=== PATIENT | female | born 1955 | race African-American/Black ===

== ENCOUNTER 2016-07-15 21:08 | Emergency (ER) | payer MEDICAID, OTHER ==
[~2016-07-15] VITALS: Ht 167.6 cm; Wt 59.0 kg
[~2016-07-15 21:08] MED LIST: ATOR10TA PO; NO HOME MEDS
[2016-07-16 00:10] LABS: BASOPHILS % 0.4 % (0.0-2.0); EOSINOPHILS % 0.1 % (0.0-5.0); HEMATOCRIT. 42.2 % (36.0-48.0); HEMOGLOBIN. 14.1 g/dL (12.0-16.0); LYMPHOCYTES % 13.9 % (20.0-50.0); MEAN CORPUSCULAR HEMOGLOBIN 30.3 pg (28.0-32.0); MEAN CORPUSCULAR HGB CONC 33.5 g/dL (31.0-37.0); MEAN CORPUSCULAR VOLUME 90.6 fL (81.0-99.0); MEAN PLATELET VOLUME 7.2 fl (7.4-10.4); MONOCYTES % 12.6 % (2.0-8.0); PLATELET 214 x1000/uL (130-400); RED BLOOD CELL COUNT 4.66 mill/uL (4.2-5.4); RED CELL DISTRIBUTION WIDTH 13.5 % (11.6-14.6); WHITE BLOOD COUNT 15.4 x1000/uL (4.5-11.0)
[2016-07-16 00:15] LABS: CHLORIDE 107 mEq/L (98-107); INDEX HEMOLYSI 1 (1-3); INDEX ICTERIC 1 (1-4); INDEX LIPEMIC 1 (1-3)
[2016-07-16 00:24] LABS: ALANINE AMINOTRANSFERASE 24 IU/L (13-61); ALBUMIN 3.1 g/dL (3.4-5.0); ANION GAP 14; CALCIUM 8.7 mg/dL (8.5-10.1); CARBON DIOXIDE 22 mEq/L (21-32); UREA NITROGEN BLOOD 15 mg/dL (7-21); eGFR > 60 mL/min (>60)
[2016-07-16 02:24] LABS: CLARITY URINE CLEAR (CLEAR); COLOR URINE YELLOW (YELLOW); GLUCOSE URINE NEGATIVE (NEGATIVE); KETONES URINE 1+ (NEGATIVE); LEUKOCYTE ESTERASE URINE NEGATIVE (NEGATIVE); NITRITE URINE NEGATIVE (NEGATIVE); OCCULT BLOOD URINE NEGATIVE (NEGATIVE); PROTEIN URINE TRACE (NEGATIVE); SPECIFIC GRAVITY URINE 1.024 (1.005-1.030)
[2016-07-16 02:40] LABS: SQUAMOUS EPITHELIAL CELL URINE FEW /lpf (RARE/1+)
[2016-07-16 02:42] LABS: BACTERIA URINE 4+; WBC URINE 0-2 /hpf (0-2)
[2016-07-16] MEDS ORDERED: SODIUM CHLORIDE 0.9% 250 ML IV ONE (06:04)
[2016-07-16] MEDS ORDERED: CEFTRIAXONE 1 G PREMIX 50 ML IV ONE (06:15)
[2016-07-16 10:45] VITALS: BP 134/84
== END 2016-07-16 11:35 | disposition short-term general hospital (02) ==
LOC: ER 21:09
DX: I70.293 Other atherosclerosis of native arteries of extremities, bilateral legs (principal); G89.29 Other chronic pain; N39.0 Urinary tract infection, site not specified; I10 Essential (primary) hypertension; K59.09 Other constipation; E78.00 Pure hypercholesterolemia, unspecified; Z74.01 Bed confinement status; M21.962 Unspecified acquired deformity of left lower leg; M21.961 Unspecified acquired deformity of right lower leg
CPT/HCPCS: 36415; 71010; 80053; 81001; 85025; 93005; 93970; 96365; 99285; J0696; J7050; Z7610; J7030

== ENCOUNTER 2016-10-30 17:51 | Emergency (ER) | payer MEDICARE, MEDICAID ==
[~2016-10-30] VITALS: Ht 157.5 cm; Wt 54.0 kg
[2016-10-30] MEDS ORDERED: KETOROLAC 60MG/2ML VIAL IM ONE (18:45)
[2016-10-30 22:14] VITALS: BP 125/80
== END 2016-10-30 22:47 | disposition home or self-care (01) ==
LOC: ER 18:18
DX: M72.2 Plantar fascial fibromatosis (principal); I10 Essential (primary) hypertension; E78.00 Pure hypercholesterolemia, unspecified
CPT/HCPCS: 96372; 99283; J1885

== ENCOUNTER 2016-12-24 08:47 | Emergency (ER) | payer MEDICARE, MEDICAID ==
[~2016-12-24] VITALS: Ht 152.4 cm; Wt 50.0 kg
[2016-12-24] MEDS ORDERED: AMLO5TAB4 PO (08:55)
[2016-12-24] MEDS ORDERED: ESCI10TA PO (08:55)
[2016-12-24] MEDS ORDERED: CLOP75TA16 PO (08:55)
[2016-12-24] MEDS ORDERED: DOCU-138 PO (08:55)
[2016-12-24] MEDS ORDERED: LISI-604 PO (08:55)
[2016-12-24] MEDS ORDERED: ASPI-1159 PO (08:55)
[2016-12-24] MEDS ORDERED: ATOR20TA65 PO (08:55)
[2016-12-24] MEDS ORDERED: TETANUS, DIPHTHERIA, PERTUSSIS VAC/PF 0.5ML (>7YR OLD) IM ONE (11:15)
[2016-12-24 14:53] VITALS: BP 143/82
== END 2016-12-24 15:04 | disposition home or self-care (01) ==
LOC: ER 08:51
DX: S09.90XA Unspecified injury of head, initial encounter (principal); W07.XXXA Fall from chair, initial encounter; I10 Essential (primary) hypertension; F32.9 Major depressive disorder, single episode, unspecified; E78.00 Pure hypercholesterolemia, unspecified; Y93.89 Activity, other specified; Y92.89 Other specified places as the place of occurrence of the external cause; Z79.82 Long term (current) use of aspirin
CPT/HCPCS: 70450; 90471; 90715; 99284

== ENCOUNTER 2017-01-25 04:34 | Emergency (ER) | payer MEDICARE, MEDICAID ==
[~2017-01-25] VITALS: Ht 154.9 cm; Wt 50.0 kg
[~2017-01-25 04:34] MED LIST changes: +AMLO5TAB4 PO; +ASPI-1159 PO; +ATOR20TA65 PO; +CLOP75TA16 PO; +DOCU-138 PO; +ESCI10TA PO; +LISI-604 PO
[2017-01-25 07:26] VITALS: BP 127/64
== END 2017-01-25 07:52 | disposition home or self-care (01) ==
LOC: ER 04:39
DX: M25.561 Pain in right knee (principal); E78.00 Pure hypercholesterolemia, unspecified; I10 Essential (primary) hypertension; F17.200 Nicotine dependence, unspecified, uncomplicated; Z79.82 Long term (current) use of aspirin
CPT/HCPCS: 73562; 93971; 99284

== ENCOUNTER 2017-02-24 08:30 | Emergency (ER) | payer MEDICARE, MEDICAID ==
[~2017-02-24] VITALS: Ht 160 cm; Wt 60.0 kg
[2017-02-24] MEDS ORDERED: SODIUM CHLORIDE 0.9% 1,000 ML IV ONE (08:50)
[2017-02-24 09:11] LABS: BASOPHILS % 0.5 % (0.0-2.0); EOSINOPHILS % 2.4 % (0.0-5.0); HEMOGLOBIN. 14.4 g/dL (12.0-16.0); LYMPHOCYTES % 38.1 % (20.0-50.0); MEAN CORPUSCULAR HEMOGLOBIN 30.7 pg (28.0-32.0); MEAN PLATELET VOLUME 7.2 fl (7.4-10.4); MONOCYTES % 9.1 % (2.0-8.0); NEUTROPHILS % 49.9 % (40.0-76.0); PLATELET 264 x1000/uL (130-400); RED BLOOD CELL COUNT 4.67 mill/uL (4.2-5.4); RED CELL DISTRIBUTION WIDTH 14.5 % (11.6-14.6)
[2017-02-24 09:21] LABS: INR 1.1
[2017-02-24 09:31] LABS: CARBON DIOXIDE 25 mEq/L (21-32); CHLORIDE 110 mEq/L (98-107); TROPONIN I < 0.02 ng/mL (0.00-0.04)
[2017-02-24 12:00] LABS: CLARITY URINE CLEAR (CLEAR); COLOR URINE YELLOW (YELLOW); SPECIFIC GRAVITY URINE 1.018 (1.005-1.030)
[2017-02-24 12:01] LABS: GLUCOSE URINE NEGATIVE (NEGATIVE); KETONES URINE NEGATIVE (NEGATIVE); LEUKOCYTE ESTERASE URINE NEGATIVE (NEGATIVE); NITRITE URINE NEGATIVE (NEGATIVE); OCCULT BLOOD URINE NEGATIVE (NEGATIVE); PH URINE 5.5 (4.5-8.0); PROTEIN URINE NEGATIVE (NEGATIVE)
[2017-02-24 14:21] VITALS: BP 143/80
== END 2017-02-24 16:01 | disposition home or self-care (01) ==
LOC: ER 08:40
DX: R53.1 Weakness (principal); I10 Essential (primary) hypertension; E78.00 Pure hypercholesterolemia, unspecified; I69.354 Hemiplegia and hemiparesis following cerebral infarction affecting left non-dominant side; Z79.82 Long term (current) use of aspirin
CPT/HCPCS: 36415; 70450; 70486; 71010; 80053; 81003; 82962; 83880; 84484; 85025; 85610; 93005; 96360; 96361; 99285; J7030

== ENCOUNTER 2017-03-23 08:49 | Emergency (ER) | payer MEDICARE, MEDICAID ==
[~2017-03-23] VITALS: Ht 152.4 cm; Wt 68.0 kg
[2017-03-23 10:38] LABS: BASOPHILS % 0.3 % (0.0-2.0); EOSINOPHILS % 1.3 % (0.0-5.0); HEMATOCRIT. 42.6 % (36.0-48.0); LYMPHOCYTES % 9.4 % (20.0-50.0); MEAN CORPUSCULAR HEMOGLOBIN 30.6 pg (28.0-32.0); MEAN CORPUSCULAR VOLUME 93.4 fL (81.0-99.0); MEAN PLATELET VOLUME 7.4 fl (7.4-10.4); MONOCYTES % 7.2 % (2.0-8.0); NEUTROPHILS % 81.8 % (40.0-76.0); PLATELET 250 x1000/uL (130-400); RED BLOOD CELL COUNT 4.56 mill/uL (4.2-5.4); RED CELL DISTRIBUTION WIDTH 14.1 % (11.6-14.6)
[2017-03-23 10:44] LABS: CHLORIDE 113 mEq/L (98-107)
[2017-03-23 10:50] LABS: CARBON DIOXIDE 22 mEq/L (21-32)
[2017-03-23] MEDS ORDERED: ONDANSETRON HCL 4MG/2ML VIAL IV ONE (11:45)
[2017-03-23] MEDS ORDERED: SODIUM CHLORIDE 0.9% 1,000 ML IV ONE (11:45)
[2017-03-23 17:06] VITALS: BP 148/88
== END 2017-03-23 17:12 ==
LOC: ER 08:51
DX: E86.0 Dehydration (principal); K52.9 Noninfective gastroenteritis and colitis, unspecified; F03.90 Unspecified dementia, unspecified severity, without behavioral disturbance, psychotic disturbance, mood disturbance, and anxiety; I10 Essential (primary) hypertension; Z79.82 Long term (current) use of aspirin
CPT/HCPCS: 36415; 80048; 85025; 96361; 96374; 99285; J2405; J7030

== ENCOUNTER 2017-05-15 19:59 | Emergency (ER) | payer MEDICARE, MEDICAID ==
[~2017-05-15] VITALS: Ht 162.6 cm; Wt 60.0 kg
[2017-05-16 05:15] VITALS: BP 145/74
== END 2017-05-16 05:29 | disposition home or self-care (01) ==
LOC: ER 20:39
DX: L84 Corns and callosities (principal); I10 Essential (primary) hypertension; Z79.82 Long term (current) use of aspirin
CPT/HCPCS: 99283

== ENCOUNTER 2018-01-24 12:33 | Inpatient (IN) | payer MEDICARE, MEDICAID ==
[~2018-01-24] VITALS: Ht 170.2 cm; Wt 63.5 kg
[~2018-01-24 12:33] MED LIST changes: -NO HOME MEDS
[2018-01-24] MEDS ORDERED: SODIUM CHLORIDE 0.9% 1,000 ML IV ONE (13:28)
[2018-01-24 13:47] LABS: BASOPHILS % 0.9 % (0.0-2.0); EOSINOPHILS % 1.8 % (0.0-5.0); HEMATOCRIT. 45.9 % (36.0-48.0); HEMOGLOBIN. 15.8 g/dL (12.0-16.0); LYMPHOCYTES % 40.3 % (20.0-50.0); MEAN CORPUSCULAR HEMOGLOBIN 31.2 pg (28.0-32.0); MEAN CORPUSCULAR VOLUME 90.7 fL (81.0-99.0); MEAN PLATELET VOLUME 7.8 fl (7.4-10.4); MONOCYTES % 10.5 % (2.0-8.0); NEUTROPHILS % 46.5 % (40.0-76.0); PLATELET 268 x1000/uL (130-400); RED BLOOD CELL COUNT 5.06 mill/uL (4.2-5.4); RED CELL DISTRIBUTION WIDTH 13.8 % (11.6-14.6)
[2018-01-24 13:51] LABS: CHLORIDE 107 mEq/L (98-107)
[2018-01-24 13:56] LABS: PARTIAL THROMBOPLASTIN TIME 28.5 sec (23.4-31.0); PROTHROMBIN TIME 10.4 sec (9.1-11.1)
[2018-01-24] MEDS ORDERED: CEFTRIAXONE 1 G PREMIX 50 ML IV ONE (15:45)
[2018-01-24] MEDS ORDERED: SODIUM CHLORIDE 0.9% 1000ML BAG (SEPSIS BOLUS) IV ONE (15:45)
[2018-01-24 16:15] LABS: CLARITY URINE CLOUDY (CLEAR); COLOR URINE YELLOW (YELLOW); KETONES URINE NEGATIVE (NEGATIVE); LEUKOCYTE ESTERASE URINE 3+ (NEGATIVE); NITRITE URINE POSITIVE (NEGATIVE); OCCULT BLOOD URINE TRACE (NEGATIVE); PH URINE 6.5 (4.5-8.0); PROTEIN URINE NEGATIVE (NEGATIVE); SPECIFIC GRAVITY URINE 1.012 (1.005-1.030); UROBILINOGEN URINE 0.2 E.U./dL (0.2-1.0)
[2018-01-24] MEDS ORDERED: HYDRALAZINE 20MG/ML VIAL IV PRN (18:00)
[2018-01-24] MEDS ORDERED: HYDRALAZINE 20MG/ML VIAL IV NR (18:30)
[2018-01-24 20:00] VITALS: BP 114/90
[2018-01-24 21:40] VITALS: BP 114/90
[2018-01-24] MEDS ORDERED: ACETAMINOPHEN 325MG TABLET PO PRN (22:15)
[2018-01-24] MEDS ORDERED: ONDANSETRON HCL 4MG/2ML INJ IV PRN (22:15)
[2018-01-24] MEDS ORDERED: GUAIFENESIN 200MG/10ML SUGAR FREE UDC PO PRN (22:15)
[2018-01-24] MEDS ORDERED: MAGNESIUM/ALUMINUM HYDROXIDE/SIMETHICONE 30ML UDC PO PRN (22:15)
[2018-01-24] MEDS ORDERED: HYDRALAZINE 10 MG in SODIUM CHLORIDE 0.9% 49.5 ML IV PRN (23:00)
[2018-01-24] MEDS ORDERED: MVI, ADULT NO.1 10 ML, FOLIC ACID 1 MG, THIAMINE HCL 100 MG in SODIUM CHLORIDE 0.9% 1,0... IV SCH ×4 (23:59)
[2018-01-25] VITALS: BP 166/87
[2018-01-25 04:00] VITALS: BP 130/89
[2018-01-25 08:00] VITALS: BP 107/60
[2018-01-25] MEDS: CLOPIDOGREL 75MG TABLET PO SCH (09:12)
[2018-01-25] MEDS: ASPIRIN 81MG EC TABLET PO SCH (09:12)
[2018-01-25] MEDS: ENOXAPARIN 40MG/0.4ML SYR SUBCUT SCH (09:12)
[2018-01-25] MEDS: AMLODIPINE 5MG TABLET PO SCH (09:13)
[2018-01-25] MEDS: LISINOPRIL 10MG TABLET PO SCH ×2 (09:13→20:42)
[2018-01-25 12:00] VITALS: BP 108/74
[2018-01-25 16:00] VITALS: BP 125/89
[2018-01-25] MEDS: LEVOFLOXACIN 500MG PREMIX 100 ML IV SCH (18:54)
[2018-01-25 20:00] VITALS: BP 101/58
[2018-01-25] MEDS: ATORVASTATIN CALCIUM 20MG TABLET PO SCH (20:42)
[2018-01-26] VITALS: BP 118/79
[2018-01-26 04:00] VITALS: BP 116/79
[2018-01-26 08:00] VITALS: BP 118/74
[2018-01-26] MEDS: LISINOPRIL 10MG TABLET PO SCH ×2 (08:52→23:11)
[2018-01-26] MEDS: ASPIRIN 81MG EC TABLET PO SCH (08:54)
[2018-01-26] MEDS: CLOPIDOGREL 75MG TABLET PO SCH (08:54)
[2018-01-26] MEDS: ENOXAPARIN 40MG/0.4ML SYR SUBCUT SCH (08:55)
[2018-01-26] MEDS: AMLODIPINE 5MG TABLET PO SCH (08:55)
[2018-01-26 12:00] VITALS: BP 104/69
[2018-01-26 16:00] VITALS: BP 119/73
[2018-01-26] MEDS: LEVOFLOXACIN 500MG PREMIX 100 ML IV SCH (17:00)
[2018-01-26 20:00] VITALS: BP 133/83
[2018-01-26] MEDS: ATORVASTATIN CALCIUM 20MG TABLET PO SCH (23:10)
[2018-01-27] VITALS: BP 106/77
[2018-01-27 04:00] VITALS: BP 109/79
[2018-01-27 08:00] VITALS: BP 113/73
[2018-01-27] MEDS: LISINOPRIL 10MG TABLET PO SCH (09:08)
[2018-01-27] MEDS: AMLODIPINE 5MG TABLET PO SCH (09:09)
[2018-01-27] MEDS: ASPIRIN 81MG EC TABLET PO SCH (09:09)
[2018-01-27] MEDS: CLOPIDOGREL 75MG TABLET PO SCH (09:09)
[2018-01-27] MEDS: ENOXAPARIN 40MG/0.4ML SYR SUBCUT SCH (09:10)
[2018-01-27 11:51] VITALS: BP 120/62
[2018-01-27 12:00] VITALS: BP 120/62
== END 2018-01-27 15:39 | DRG 690 ==
LOC: ER 12:33 → EDBEDREQ 14:42 → ENRESERV 18:17 → 6EST 20:13
PROVIDERS: ADMIT Internal Medicine; ATTEND Internal Medicine
DX: N39.0 Urinary tract infection, site not specified (principal); R62.7 Adult failure to thrive; E78.00 Pure hypercholesterolemia, unspecified; B96.20 Unspecified Escherichia coli [E. coli] as the cause of diseases classified elsewhere; E78.5 Hyperlipidemia, unspecified; I10 Essential (primary) hypertension; Z82.49 Family history of ischemic heart disease and other diseases of the circulatory system; Z91.19 Patient's noncompliance with other medical treatment and regimen; Z86.73 Personal history of transient ischemic attack (TIA), and cerebral infarction without residual deficits; Z79.82 Long term (current) use of aspirin; Z79.899 Other long term (current) drug therapy
CPT/HCPCS: 36415; 71045; 83605; 83880; 84145; 84484; 87077; 87186; 93005; 96361; 96374; 96375; 99285; C1893; J0360; J0696; J1650; J1956; J3411; J3490; J7030; J7050; A4315

== ENCOUNTER 2018-03-31 22:45 | Emergency (ER) | payer MEDICARE, MEDICAID ==
[~2018-03-31] VITALS: Ht 170.2 cm; Wt 70.0 kg
[2018-03-31 23:52] LABS: HEMATOCRIT 42.6 % (36.0-48.0); HEMOGLOBIN 14.3 g/dL (12.0-16.0); MEAN CORPUSCULAR HEMOGLOBIN 30.6 pg (28.0-32.0); PLATELET 239 x1000/uL (130-400); RED BLOOD CELL COUNT 4.68 mill/uL (4.2-5.4); RED CELL DISTRIBUTION WIDTH 13.4 % (11.6-14.6)
[2018-03-31 23:56] LABS: CHLORIDE 104 mEq/L (98-107)
[2018-04-01 00:47] LABS: CLARITY URINE CLEAR (CLEAR); COLOR URINE YELLOW (YELLOW); KETONES URINE TRACE (NEGATIVE); LEUKOCYTE ESTERASE URINE NEGATIVE (NEGATIVE); NITRITE URINE NEGATIVE (NEGATIVE); OCCULT BLOOD URINE NEGATIVE (NEGATIVE); PH URINE 6.5 (4.5-8.0); PROTEIN URINE 1+ (NEGATIVE); SPECIFIC GRAVITY URINE 1.025 (1.005-1.030)
[2018-04-01 04:31] VITALS: BP 112/80
== END 2018-04-01 04:33 | disposition home or self-care (01) ==
LOC: ER 22:45
DX: I95.9 Hypotension, unspecified (principal); I10 Essential (primary) hypertension; E78.00 Pure hypercholesterolemia, unspecified; Z86.73 Personal history of transient ischemic attack (TIA), and cerebral infarction without residual deficits
CPT/HCPCS: 36415; 71045; 85027; 93005; 99284

== ENCOUNTER 2018-10-13 18:13 | Inpatient (IN) | payer MEDICARE, MEDICAID ==
[~2018-10-13] VITALS: Ht 167.6 cm; Wt 61.8 kg
[~2018-10-13 18:13] MED LIST changes: -ASPI-1159 PO; +ASPI-1393 PO; -CLOP75TA16 PO; +CLOP75TA4 PO
[2018-10-13] MEDS ORDERED: SODIUM CHLORIDE 0.9% 1000ML BAG (SEPSIS BOLUS) IV ONE (18:45)
[2018-10-13 19:02] LABS: BASOPHILS % 0.9 % (0.0-2.0); HEMATOCRIT. 45.2 % (36.0-48.0); HEMOGLOBIN. 15.4 g/dL (12.0-16.0); LYMPHOCYTES % 36.5 % (20.0-50.0); MEAN CORPUSCULAR HEMOGLOBIN 30.8 pg (28.0-32.0); MEAN CORPUSCULAR VOLUME 90.5 fL (81.0-99.0); MEAN PLATELET VOLUME 6.9 fl (7.4-10.4); MONOCYTES % 11.2 % (2.0-8.0); NEUTROPHILS % 48.4 % (40.0-76.0); PLATELET 315 x1000/uL (130-400); RED CELL DISTRIBUTION WIDTH 13.4 % (11.6-14.6)
[2018-10-13 19:06] LABS: CHLORIDE 109 mEq/L (98-107); INR 1.1; PROTHROMBIN TIME 10.9 sec (9.6-11.0)
[2018-10-13 19:22] LABS: CLARITY URINE TURBID (CLEAR); COLOR URINE YELLOW (YELLOW); KETONES URINE TRACE (NEGATIVE); LEUKOCYTE ESTERASE URINE 3+ (NEGATIVE); NITRITE URINE NEGATIVE (NEGATIVE); OCCULT BLOOD URINE 3+ (NEGATIVE); PROTEIN URINE 1+ (NEGATIVE); SPECIFIC GRAVITY URINE 1.017 (1.005-1.030)
[2018-10-13] MEDS ORDERED: LEVOFLOXACIN 750MG PREMIX 150 ML IV ONE (21:30)
[2018-10-13] MEDS ORDERED: ACETAMINOPHEN 325MG TABLET PO PRN (23:15)
[2018-10-13] MEDS ORDERED: HYDROMORPHONE HCL/PF 2MG/ML CPJ IV PRN (23:15)
[2018-10-13] MEDS ORDERED: MAGNESIUM/ALUMINUM HYDROXIDE/SIMETHICONE 30ML UDC PO PRN (23:15)
[2018-10-13] MEDS ORDERED: CLONIDINE 0.1MG TABLET PO PRN (23:15)
[2018-10-13] MEDS ORDERED: GUAIFENESIN 200MG/10ML SUGAR FREE UDC PO PRN (23:15)
[2018-10-13] MEDS ORDERED: DOCUSATE SODIUM 100MG CAPSULE PO PRN (23:15)
[2018-10-13] MEDS ORDERED: LEVOFLOXACIN 500MG PREMIX 100 ML IV SCH (23:15)
[2018-10-13] MEDS ORDERED: ONDANSETRON HCL 4MG/2ML INJ IV PRN (23:15)
[2018-10-14 02:50] VITALS: BP 114/78
[2018-10-14] MEDS: HYDROCODONE/ACETAMINOPHEN 5/325MG TABLET PO PRN ×2 (03:44→11:58)
[2018-10-14 04:00] VITALS: BP 123/78
[2018-10-14 08:00] VITALS: BP 103/58
[2018-10-14] MEDS ORDERED: ENOXAPARIN 30MG/0.3ML SYR SUBCUT SCH (09:00)
[2018-10-14] MEDS ORDERED: AMLODIPINE 10MG TABLET PO SCH (09:00)
[2018-10-14] MEDS ORDERED: ENOXAPARIN 40MG/0.4ML SYR SUBCUT SCH (09:00)
[2018-10-14 10:05] LABS: BASOPHILS % 0.6 % (0.0-2.0); EOSINOPHILS % 3.5 % (0.0-5.0); HEMOGLOBIN. 13.8 g/dL (12.0-16.0); MEAN CORPUSCULAR HEMOGLOBIN 31.1 pg (28.0-32.0); MEAN CORPUSCULAR VOLUME 92.4 fL (81.0-99.0); MEAN PLATELET VOLUME 7.3 fl (7.4-10.4); MONOCYTES % 10.7 % (2.0-8.0); NEUTROPHILS % 52.2 % (40.0-76.0); PLATELET 233 x1000/uL (130-400); RED BLOOD CELL COUNT 4.44 mill/uL (4.2-5.4); RED CELL DISTRIBUTION WIDTH 13.4 % (11.6-14.6)
[2018-10-14 10:14] LABS: CHLORIDE 113 mEq/L (98-107)
[2018-10-14] MEDS: SODIUM CHLORIDE 0.9% 1,000 ML IV SCH (11:42)
[2018-10-14 12:00] VITALS: BP 106/61
[2018-10-14] MEDS ORDERED: PNEUMOCOCCAL 23-VAL P-SAC VAC 0.5 ML IM ONE (12:00)
[2018-10-14 16:07] VITALS: BP 107/66
[2018-10-14 20:21] VITALS: BP 128/79
[2018-10-14] MEDS: LEVOFLOXACIN 250MG PREMIX 50 ML IV SCH (22:26)
[2018-10-15 00:41] VITALS: BP 125/72
[2018-10-15] MEDS: SODIUM CHLORIDE 0.9% 1,000 ML IV SCH ×2 (01:12→22:09)
[2018-10-15 04:00] VITALS: BP 147/82
[2018-10-15 06:21] LABS: CHLORIDE 111 mEq/L (98-107)
[2018-10-15 08:00] VITALS: BP 118/65
[2018-10-15] MEDS: ENOXAPARIN 40MG/0.4ML SYR SUBCUT SCH (08:30)
[2018-10-15 12:00] VITALS: BP 124/89
[2018-10-15 16:00] VITALS: BP 141/94
[2018-10-15 20:00] VITALS: BP 123/89
[2018-10-15] MEDS: LEVOFLOXACIN 250MG PREMIX 50 ML IV SCH (22:30)
[2018-10-16] VITALS: BP 118/80
[2018-10-16] MEDS: SODIUM CHLORIDE 0.9% 1,000 ML IV SCH ×2 (02:30→16:32)
[2018-10-16 04:00] VITALS: BP 145/83
[2018-10-16 08:15] VITALS: BP 129/55
[2018-10-16] MEDS: ENOXAPARIN 40MG/0.4ML SYR SUBCUT SCH (09:06)
[2018-10-16 12:44] VITALS: BP 111/72
[2018-10-16 16:23] VITALS: BP 119/81
[2018-10-16 19:47] VITALS: BP 135/80
[2018-10-16] MEDS: LEVOFLOXACIN 250MG PREMIX 50 ML IV SCH (22:28)
[2018-10-17] VITALS: BP 128/70
[2018-10-17 04:00] VITALS: BP 135/85
[2018-10-17] MEDS: SODIUM CHLORIDE 0.9% 1,000 ML IV SCH (05:35)
[2018-10-17 08:00] VITALS: BP 119/78
[2018-10-17] MEDS: ENOXAPARIN 40MG/0.4ML SYR SUBCUT SCH (08:38)
[2018-10-17 12:38] VITALS: BP 115/75
[2018-10-17 13:37] VITALS: BP 115/75
[2018-10-17 16:00] VITALS: BP 146/89
[2018-10-17] MEDS ORDERED: LEVOFLOXACIN 250MG TABLET PO SCH (22:00)
== END 2018-10-17 18:33 | DRG 871 ==
LOC: ER 18:28 → EDBEDREQSVC 22:05 → EDBEDREQTM 22:05 → EDBEDREQ 22:05 → ENRESERV 10-14 01:47 → 8WST 10-14 03:05
PROVIDERS: ADMIT Hospitalist; ATTEND Hospitalist
DX: A41.9 Sepsis, unspecified organism (principal); N17.0 Acute kidney failure with tubular necrosis; E44.1 Mild protein-calorie malnutrition; N39.0 Urinary tract infection, site not specified; B96.20 Unspecified Escherichia coli [E. coli] as the cause of diseases classified elsewhere; E78.00 Pure hypercholesterolemia, unspecified; M79.671 Pain in right foot; F03.90 Unspecified dementia, unspecified severity, without behavioral disturbance, psychotic disturbance, mood disturbance, and anxiety; I10 Essential (primary) hypertension; Z86.73 Personal history of transient ischemic attack (TIA), and cerebral infarction without residual deficits; Z68.22 Body mass index [BMI] 22.0-22.9, adult; Z79.899 Other long term (current) drug therapy
CPT/HCPCS: 36415; 71045; 73620; 73700; 83605; 84145; 84484; 87077; 87186; 90732; 96365; 99285; C1893; J1170; J1650; J1956; J7030

== ENCOUNTER 2019-04-22 12:54 | Inpatient (IN) | payer MEDICARE, MEDICAID ==
[~2019-04-22] VITALS: Ht 170.2 cm; Wt 59.4 kg
[~2019-04-22 12:54] MED LIST changes: -ASPI-1393 PO; +ASPI-1497 PO
[2019-04-22 14:24] LABS: BASOPHILS % 0.5 % (0.0-2.0); EOSINOPHILS % 0.4 % (0.0-5.0); HEMATOCRIT. 44.8 % (36.0-48.0); HEMOGLOBIN. 15.4 g/dL (12.0-16.0); MEAN CORPUSCULAR HEMOGLOBIN 30.7 pg (28.0-32.0); MEAN CORPUSCULAR VOLUME 89.5 fL (81.0-99.0); MEAN PLATELET VOLUME 6.6 fl (7.4-10.4); MONOCYTES % 6.5 % (2.0-8.0); NEUTROPHILS % 73.6 % (40.0-76.0); PLATELET 306 x1000/uL (130-400); RED BLOOD CELL COUNT 5.01 mill/uL (4.2-5.4); RED CELL DISTRIBUTION WIDTH 13.6 % (11.6-14.6)
[2019-04-22 14:30] LABS: CHLORIDE 111 mEq/L (98-107)
[2019-04-22 14:34] LABS: ETHANOL BLOOD < 10 mg/dL
[2019-04-22 16:59] LABS: CLARITY URINE TURBID (CLEAR); COLOR URINE YELLOW (YELLOW); KETONES URINE NEGATIVE (NEGATIVE); LEUKOCYTE ESTERASE URINE 3+ (NEGATIVE); NITRITE URINE NEGATIVE (NEGATIVE); OCCULT BLOOD URINE 1+ (NEGATIVE); PH URINE 5.5 (4.5-8.0); PROTEIN URINE 2+ (NEGATIVE)
[2019-04-22 17:10] LABS: *AMPHETAMINES SCREEN URINE NEGATIVE (NEGATIVE); *BARBITURATES SCREEN URINE NEGATIVE (NEGATIVE); *COCAINE SCREEN URINE NEGATIVE (NEGATIVE)
[2019-04-22 17:11] LABS: *BENZODIAZEPINES SCREEN URINE NEGATIVE (NEGATIVE); METHADONE URINE SCREEN NEGATIVE (NEGATIVE); OPIATES URINE SCREEN NEGATIVE (NEGATIVE)
[2019-04-22 17:12] LABS: CANNABINOID URINE SCREEN NEGATIVE (NEGATIVE); PHENCYCLIDINE URINE SCREEN NEGATIVE (NEGATIVE)
[2019-04-22] MEDS ORDERED: ONDANSETRON HCL 4MG/2ML INJ IV PRN (17:30)
[2019-04-22] MEDS ORDERED: MAGNESIUM/ALUMINUM HYDROXIDE/SIMETHICONE 30ML UDC PO PRN (17:30)
[2019-04-22] MEDS ORDERED: DOCUSATE SODIUM 100MG CAPSULE PO PRN (17:30)
[2019-04-22] MEDS ORDERED: CEFTRIAXONE 2 G PREMIX 50 ML IV ONE (17:30)
[2019-04-22] MEDS ORDERED: MORPHINE SULFATE 2 MG/ML CPJ (NOT FOR IM USE) IV PRN (17:30)
[2019-04-22] MEDS ORDERED: LEVOFLOXACIN 500MG PREMIX 100 ML IV SCH ×2 (17:30→17:45)
[2019-04-22] MEDS ORDERED: LORAZEPAM 2MG/ML CPJ IV PRN (17:30)
[2019-04-22] MEDS ORDERED: ACETAMINOPHEN 325MG TABLET PO PRN (17:30)
[2019-04-22] MEDS ORDERED: CEFTRIAXONE 2 G in DEXTROSE 5% WATER 50 ML IV SCH (17:45)
[2019-04-22 22:00] VITALS: BP 144/98
[2019-04-22 22:34] VITALS: BP 144/98
[2019-04-22] MEDS: CLONIDINE 0.1MG TABLET PO PRN (22:55)
[2019-04-22] MEDS: SODIUM CHLORIDE 0.9% 1,000 ML IV SCH (23:54)
[2019-04-23] VITALS (7 sets, daily range): BP systolic 99–137; BP diastolic 70–89
[2019-04-23] MEDS ORDERED: CLON-457 PO (01:44)
[2019-04-23] MEDS ORDERED: MEMA10TA2 PO (01:44)
[2019-04-23] MEDS ORDERED: MYL30 PO (01:44)
[2019-04-23] MEDS ORDERED: DOCU-138 PO (01:51)
[2019-04-23 07:15] LABS: HEMATOCRIT. 40.2 % (36.0-48.0); MEAN CORPUSCULAR HEMOGLOBIN 31.3 pg (28.0-32.0); MEAN CORPUSCULAR VOLUME 89.9 fL (81.0-99.0); MEAN PLATELET VOLUME 7.8 fl (7.4-10.4); PLATELET 253 x1000/uL (130-400); RED BLOOD CELL COUNT 4.47 mill/uL (4.2-5.4); RED CELL DISTRIBUTION WIDTH 13.1 % (11.6-14.6)
[2019-04-23] MEDS: SODIUM CHLORIDE 0.9% 1,000 ML IV SCH ×2 (07:20→11:52)
[2019-04-23 08:23] LABS: CHLORIDE 106 mEq/L (98-107)
[2019-04-23 08:36] LABS: LDL CHOLESTEROL 140 mg/dL (5-100)
[2019-04-23 08:37] LABS: HDL CHOLESTEROL 37 mg/dL (40-59)
[2019-04-23] MEDS: ASPIRIN 81MG EC TABLET PO SCH (08:39)
[2019-04-23] MEDS: AMLODIPINE 10MG TABLET PO SCH (08:39)
[2019-04-23] MEDS: ENOXAPARIN 40MG/0.4ML SYR SUBCUT SCH (08:40)
[2019-04-23] MEDS: LEVOFLOXACIN 500MG PREMIX 100 ML IV SCH (11:52)
[2019-04-23] MEDS: CLOPIDOGREL 75MG TABLET PO SCH (12:50)
[2019-04-23] MEDS: DOCUSATE SODIUM 100MG CAPSULE PO SCH (17:00)
[2019-04-23] MEDS: MEMANTINE HCL 10MG TABLET PO SCH (20:00)
[2019-04-23] MEDS: ATORVASTATIN CALCIUM 20MG TABLET PO SCH (22:17)
[2019-04-24] VITALS: BP 115/67
[2019-04-24 04:00] VITALS: BP 125/78
[2019-04-24 06:14] LABS: CHLORIDE 112 mEq/L (98-107)
[2019-04-24] MEDS: SODIUM CHLORIDE 0.9% 1,000 ML IV SCH (06:58)
[2019-04-24] MEDS: CLOPIDOGREL 75MG TABLET PO SCH (10:24)
[2019-04-24] MEDS: MEMANTINE HCL 10MG TABLET PO SCH ×2 (10:24→17:53)
[2019-04-24] MEDS: AMLODIPINE 10MG TABLET PO SCH (10:24)
[2019-04-24] MEDS: DOCUSATE SODIUM 100MG CAPSULE PO SCH ×2 (10:24→17:53)
[2019-04-24] MEDS: LEVOFLOXACIN 500MG PREMIX 100 ML IV SCH (10:25)
[2019-04-24] MEDS: ENOXAPARIN 40MG/0.4ML SYR SUBCUT SCH (10:25)
[2019-04-24 12:00] VITALS: BP 115/81
[2019-04-24] MEDS ORDERED: MAGNESIUM 1 G PREMIX 100 ML IV NR (12:00)
[2019-04-24] MEDS: ASPIRIN 81MG EC TABLET PO SCH (14:27)
[2019-04-24 16:00] VITALS: BP 120/88
[2019-04-24 20:00] VITALS: BP 145/87
[2019-04-24] MEDS: ATORVASTATIN CALCIUM 20MG TABLET PO SCH (20:20)
[2019-04-25] VITALS (7 sets, daily range): BP systolic 118–142; BP diastolic 84–94
[2019-04-25] MEDS: SODIUM CHLORIDE 0.9% 1,000 ML IV SCH (01:11)
[2019-04-25 06:52] LABS: CHLORIDE 110 mEq/L (98-107)
[2019-04-25] MEDS: CLOPIDOGREL 75MG TABLET PO SCH (09:42)
[2019-04-25] MEDS: MEMANTINE HCL 10MG TABLET PO SCH ×2 (09:42→17:40)
[2019-04-25] MEDS: AMLODIPINE 10MG TABLET PO SCH (09:42)
[2019-04-25] MEDS: ASPIRIN 81MG EC TABLET PO SCH (09:42)
[2019-04-25] MEDS: ENOXAPARIN 40MG/0.4ML SYR SUBCUT SCH (09:45)
[2019-04-25 10:27] LABS: PLATELET ESTIMATE NORMAL
[2019-04-25] MEDS: DOCUSATE SODIUM 100MG CAPSULE PO SCH ×2 (10:51→17:40)
[2019-04-25] MEDS: CEFTRIAXONE 1 G PREMIX 50 ML IV SCH ×2 (12:09→12:10)
[2019-04-25] MEDS ORDERED: OMEPRAZOLE 20MG CAPSULE EXTENDED RELEASE PO SCH (17:00)
[2019-04-25] MEDS: ATORVASTATIN CALCIUM 20MG TABLET PO SCH (21:00)
[2019-04-25] MEDS: CLONIDINE 0.1MG TABLET PO PRN (21:15)
[2019-04-26] VITALS: BP 113/84
[2019-04-26 04:00] VITALS: BP 117/78
[2019-04-26 08:00] VITALS: BP 113/70
[2019-04-26] MEDS: MEMANTINE HCL 10MG TABLET PO SCH (08:35)
[2019-04-26] MEDS: DOCUSATE SODIUM 100MG CAPSULE PO SCH (08:35)
[2019-04-26] MEDS: CLOPIDOGREL 75MG TABLET PO SCH (08:35)
[2019-04-26] MEDS: AMLODIPINE 10MG TABLET PO SCH (08:35)
[2019-04-26] MEDS: ASPIRIN 81MG EC TABLET PO SCH (08:35)
[2019-04-26] MEDS: ENOXAPARIN 40MG/0.4ML SYR SUBCUT SCH (08:35)
[2019-04-26 12:00] VITALS: BP 108/77
[2019-04-26 14:54] VITALS: BP 108/77
== END 2019-04-26 15:30 | disposition home or self-care (01) | DRG 689 ==
LOC: ER 13:28 → EDBEDREQ 16:51 → ENRESERV 20:39 → 5WST 22:01
PROVIDERS: ADMIT Hospitalist; ATTEND Hospitalist
DX: N39.0 Urinary tract infection, site not specified (principal); G93.41 Metabolic encephalopathy; E43 Unspecified severe protein-calorie malnutrition; F03.90 Unspecified dementia, unspecified severity, without behavioral disturbance, psychotic disturbance, mood disturbance, and anxiety; I10 Essential (primary) hypertension; B95.4 Other streptococcus as the cause of diseases classified elsewhere; E78.00 Pure hypercholesterolemia, unspecified; Z86.73 Personal history of transient ischemic attack (TIA), and cerebral infarction without residual deficits; Z68.20 Body mass index [BMI] 20.0-20.9, adult; Z79.899 Other long term (current) drug therapy
CPT/HCPCS: 36415; 71045; 80053; 80061; 80305; 80320; 81003; 83735; 83880; 84439; 84443; 84484; 85025; 87077; 87186; 93005; 93970; 97162; 99285; J0696; J1650; J1956; J2060; J3475; J7060; G0480

== ENCOUNTER 2019-09-06 10:47 | Inpatient (IN) | payer MEDICARE, MEDICAID ==
[~2019-09-06] VITALS: Ht 152.4 cm; Wt 62.1 kg
[~2019-09-06 10:47] MED LIST changes: -ASPI-1497 PO; -ATOR10TA PO; -ATOR20TA65 PO; +CLON-457 PO; -CLOP75TA4 PO; -ESCI10TA PO; -LISI-604 PO; +MEMA10TA2 PO; +MYL30 PO
[2019-09-06] MEDS ORDERED: VANCOMYCIN 1 G PREMIX 200 ML IV SCH (11:30)
[2019-09-06] MEDS ORDERED: PIPERACILLIN/TAZ 3.375G PREMIX 50 ML IV ONE (11:30)
[2019-09-06] MEDS ORDERED: MORPHINE SULFATE 4 MG/ML CPJ (NOT FOR IM USE) IV STA (11:33)
[2019-09-06] MEDS ORDERED: ONDANSETRON HCL 4MG/2ML INJ IV STA (11:33)
[2019-09-06 13:10] LABS: BASOPHILS % 0.5 % (0.0-2.0); HEMATOCRIT. 43.1 % (36.0-48.0); HEMOGLOBIN. 14.7 g/dL (12.0-16.0); MEAN PLATELET VOLUME 8.3 fl (7.4-10.4); NEUTROPHILS % 49.5 % (40.0-76.0); PLATELET 200 x1000/uL (130-400); RED BLOOD CELL COUNT 4.74 mill/uL (4.2-5.4); RED CELL DISTRIBUTION WIDTH 14.9 % (11.6-14.6)
[2019-09-06 13:13] LABS: CLARITY URINE CLOUDY (CLEAR); COLOR URINE YELLOW (YELLOW); KETONES URINE NEGATIVE (NEGATIVE); LEUKOCYTE ESTERASE URINE 3+ (NEGATIVE); NITRITE URINE NEGATIVE (NEGATIVE); OCCULT BLOOD URINE 1+ (NEGATIVE); PROTEIN URINE 1+ (NEGATIVE); SPECIFIC GRAVITY URINE 1.022 (1.005-1.030)
[2019-09-06 13:17] LABS: PROTHROMBIN TIME 10.4 sec (9.6-11.0)
[2019-09-06 14:57] LABS: CHLORIDE 110 mEq/L (98-107)
[2019-09-06] MEDS ORDERED: GUAIFENESIN 200MG/10ML SUGAR FREE UDC PO PRN (16:45)
[2019-09-06] MEDS ORDERED: ONDANSETRON HCL 4MG/2ML INJ IV PRN (16:45)
[2019-09-06] MEDS ORDERED: HYDROMORPHONE HCL/PF 2MG/ML CPJ IV PRN (16:45)
[2019-09-06] MEDS ORDERED: HYDROCODONE/ACETAMINOPHEN 5/325MG TABLET PO PRN (16:45)
[2019-09-06] MEDS ORDERED: MAGNESIUM/ALUMINUM HYDROXIDE/SIMETHICONE 30ML UDC PO PRN (16:45)
[2019-09-06] MEDS ORDERED: PIPERACILLIN/TAZ 3.375G PREMIX 50 ML IV SCH (16:45)
[2019-09-06] MEDS ORDERED: DOCUSATE SODIUM 100MG CAPSULE PO PRN (16:45)
[2019-09-06 17:30] VITALS: BP 145/100
[2019-09-06 20:00] VITALS: BP 125/91
[2019-09-06 21:00] VITALS: BP 128/84
[2019-09-06] MEDS: SODIUM CHLORIDE 0.45% 1,000 ML IV SCH (22:13)
[2019-09-06] MEDS: PIPERACILLIN/TAZOBACTAM 3.375 G in DEXT 5% WATER 100 ML IV SCH (22:13)
[2019-09-07] VITALS (8 sets, daily range): BP systolic 100–136; BP diastolic 75–99
[2019-09-07] MEDS ORDERED: VANCOMYCIN 1 G PREMIX 200 ML IV SCH
[2019-09-07] MEDS ORDERED: AMLO10TA80 MT (01:33)
[2019-09-07] MEDS ORDERED: CLOP75TA4 MT (01:33)
[2019-09-07] MEDS ORDERED: ATOR20TA65 MT (01:35)
[2019-09-07] MEDS ORDERED: ASPI-1158 MT (01:36)
[2019-09-07] MEDS ORDERED: MIRT15TA MT (01:37)
[2019-09-07] MEDS ORDERED: CRAN450T10 MT (01:38)
[2019-09-07] MEDS: CLONIDINE 0.1MG TABLET PO PRN (01:48)
[2019-09-07] MEDS: PIPERACILLIN/TAZOBACTAM 3.375 G in DEXT 5% WATER 100 ML IV SCH ×3 (04:28→17:53)
[2019-09-07] MEDS: SODIUM CHLORIDE 0.45% 1,000 ML IV SCH (09:11)
[2019-09-07] MEDS: MULTIVITAMINS,THER W-MINERALS TABLET PO SCH (09:11)
[2019-09-07] MEDS: ENOXAPARIN 40MG/0.4ML SYR SUBCUT SCH (09:11)
[2019-09-07] MEDS: VANCOMYCIN 750 MG PREMIX 150 ML IV SCH ×2 (13:03→23:30)
[2019-09-08] VITALS: BP 112/88
[2019-09-08] MEDS: PIPERACILLIN/TAZOBACTAM 3.375 G in DEXT 5% WATER 100 ML IV SCH ×3 (02:14→17:40)
[2019-09-08 04:47] VITALS: BP 139/86
[2019-09-08] MEDS: SODIUM CHLORIDE 0.45% 1,000 ML IV SCH (06:26)
[2019-09-08 07:16] LABS: CHLORIDE 108 mEq/L (98-107)
[2019-09-08 08:00] VITALS: BP 128/92
[2019-09-08] MEDS: MULTIVITAMINS,THER W-MINERALS TABLET PO SCH (09:13)
[2019-09-08] MEDS: ENOXAPARIN 40MG/0.4ML SYR SUBCUT SCH (09:13)
[2019-09-08 12:00] VITALS: BP 130/89
[2019-09-08 16:00] VITALS: BP 128/79
[2019-09-08] MEDS: VANCOMYCIN 750 MG PREMIX 150 ML IV SCH (18:26)
[2019-09-08 20:00] VITALS: BP 127/94
[2019-09-09] VITALS: BP 109/88
[2019-09-09] MEDS: PIPERACILLIN/TAZOBACTAM 3.375 G in DEXT 5% WATER 100 ML IV SCH ×3 (03:46→17:41)
[2019-09-09 04:00] VITALS: BP 134/76
[2019-09-09] MEDS: MULTIVITAMINS,THER W-MINERALS TABLET PO SCH (08:57)
[2019-09-09] MEDS: ENOXAPARIN 40MG/0.4ML SYR SUBCUT SCH (08:57)
[2019-09-09] MEDS: VANCOMYCIN 750 MG PREMIX 150 ML IV SCH (11:52)
[2019-09-09 12:00] VITALS: BP 131/91
[2019-09-09 16:00] VITALS: BP 135/94
[2019-09-09 20:00] VITALS: BP 141/84
[2019-09-09] MEDS: SODIUM CHLORIDE 0.45% 1,000 ML IV SCH (22:02)
[2019-09-10] VITALS: BP 132/93
[2019-09-10] MEDS: PIPERACILLIN/TAZOBACTAM 3.375 G in DEXT 5% WATER 100 ML IV SCH ×3 (01:27→17:19)
[2019-09-10 04:00] VITALS: BP 132/91
[2019-09-10 05:32] LABS: CHLORIDE 109 mEq/L (98-107)
[2019-09-10] MEDS: VANCOMYCIN 750 MG PREMIX 150 ML IV SCH ×2 (06:07→23:53)
[2019-09-10 08:00] VITALS: BP 132/90
[2019-09-10] MEDS: ENOXAPARIN 40MG/0.4ML SYR SUBCUT SCH (08:46)
[2019-09-10] MEDS: MULTIVITAMINS,THER W-MINERALS TABLET PO SCH (08:46)
[2019-09-10 12:00] VITALS: BP 124/84
[2019-09-10 16:00] VITALS: BP 112/91
[2019-09-10 20:00] VITALS: BP 142/84
[2019-09-10] MEDS: SODIUM CHLORIDE 0.45% 1,000 ML IV SCH (22:05)
[2019-09-11] VITALS: BP 136/88
[2019-09-11] MEDS: PIPERACILLIN/TAZOBACTAM 3.375 G in DEXT 5% WATER 100 ML IV SCH ×3 (01:50→17:15)
[2019-09-11 08:00] VITALS: BP 118/69
[2019-09-11] MEDS: MULTIVITAMINS,THER W-MINERALS TABLET PO SCH (09:06)
[2019-09-11] MEDS: ENOXAPARIN 40MG/0.4ML SYR SUBCUT SCH (09:07)
[2019-09-11 12:00] VITALS: BP 140/98
[2019-09-11] MEDS: SODIUM CHLORIDE 0.45% 1,000 ML IV SCH (12:50)
[2019-09-11 16:00] VITALS: BP 139/92
[2019-09-11] MEDS: VANCOMYCIN 750 MG PREMIX 150 ML IV SCH (18:23)
[2019-09-11 20:00] VITALS: BP 142/87
[2019-09-12] VITALS: BP 138/68
[2019-09-12] MEDS: PIPERACILLIN/TAZOBACTAM 3.375 G in DEXT 5% WATER 100 ML IV SCH ×3 (01:51→17:10)
[2019-09-12 04:00] VITALS: BP 130/75
[2019-09-12] MEDS: MULTIVITAMINS,THER W-MINERALS TABLET PO SCH (08:35)
[2019-09-12] MEDS: ENOXAPARIN 40MG/0.4ML SYR SUBCUT SCH (08:35)
[2019-09-12] MEDS: SODIUM CHLORIDE 0.45% 1,000 ML IV SCH ×2 (11:26→22:42)
[2019-09-12] MEDS: VANCOMYCIN 750 MG PREMIX 150 ML IV SCH (11:30)
[2019-09-12 12:00] VITALS: BP 141/90
[2019-09-12 16:00] VITALS: BP 164/87
[2019-09-12 20:00] VITALS: BP 145/97
[2019-09-13 00:16] VITALS: BP 162/98
[2019-09-13] MEDS: CLONIDINE 0.1MG TABLET PO PRN (00:31)
[2019-09-13] MEDS: PIPERACILLIN/TAZOBACTAM 3.375 G in DEXT 5% WATER 100 ML IV SCH ×3 (01:50→18:42)
[2019-09-13 04:00] VITALS: BP 114/81
[2019-09-13] MEDS: VANCOMYCIN 750 MG PREMIX 150 ML IV SCH (05:33)
[2019-09-13 08:00] VITALS: BP 116/72
[2019-09-13] MEDS: ENOXAPARIN 40MG/0.4ML SYR SUBCUT SCH (09:07)
[2019-09-13] MEDS: MULTIVITAMINS,THER W-MINERALS TABLET PO SCH (09:07)
[2019-09-13 12:00] VITALS: BP 119/66
[2019-09-13 16:00] VITALS: BP 123/68
[2019-09-13 20:00] VITALS: BP 131/99
[2019-09-13] MEDS: SODIUM CHLORIDE 0.45% 1,000 ML IV SCH (20:15)
[2019-09-14] VITALS: BP 140/90
[2019-09-14] MEDS: VANCOMYCIN 750 MG PREMIX 150 ML IV SCH ×2 (00:04→19:21)
[2019-09-14] MEDS: PIPERACILLIN/TAZOBACTAM 3.375 G in DEXT 5% WATER 100 ML IV SCH ×3 (02:36→18:26)
[2019-09-14 04:00] VITALS: BP 130/87
[2019-09-14 08:00] VITALS: BP 149/93
[2019-09-14] MEDS: ENOXAPARIN 40MG/0.4ML SYR SUBCUT SCH (09:00)
[2019-09-14] MEDS: MULTIVITAMINS,THER W-MINERALS TABLET PO SCH (10:28)
[2019-09-14 12:00] VITALS: BP 163/96
[2019-09-14 16:00] VITALS: BP 130/90
[2019-09-14] MEDS: SODIUM CHLORIDE 0.45% 1,000 ML IV SCH (16:25)
[2019-09-14 20:00] VITALS: BP 146/103
[2019-09-14] MEDS: CLONIDINE 0.1MG TABLET PO PRN (21:45)
[2019-09-15] VITALS: BP 104/79
[2019-09-15] MEDS: SODIUM CHLORIDE 0.45% 1,000 ML IV SCH (00:43)
[2019-09-15] MEDS: PIPERACILLIN/TAZOBACTAM 3.375 G in DEXT 5% WATER 100 ML IV SCH ×2 (01:41→09:48)
[2019-09-15 04:00] VITALS: BP 124/74
[2019-09-15 06:10] LABS: CHLORIDE 110 mEq/L (98-107)
[2019-09-15 06:19] LABS: BASOPHILS % 0.6 % (0.0-2.0); EOSINOPHILS % 3.7 % (0.0-5.0); HEMATOCRIT. 36.1 % (36.0-48.0); HEMOGLOBIN. 12.4 g/dL (12.0-16.0); LYMPHOCYTES % 26.1 % (20.0-50.0); MEAN CORPUSCULAR HEMOGLOBIN 31.1 pg (28.0-32.0); MEAN CORPUSCULAR VOLUME 90.7 fL (81.0-99.0); MEAN PLATELET VOLUME 7.5 fl (7.4-10.4); NEUTROPHILS % 58.6 % (40.0-76.0); PLATELET 256 x1000/uL (130-400); RED BLOOD CELL COUNT 3.98 mill/uL (4.2-5.4)
[2019-09-15 08:30] VITALS: BP 109/79
[2019-09-15] MEDS: ENOXAPARIN 40MG/0.4ML SYR SUBCUT SCH (09:00)
[2019-09-15] MEDS: MULTIVITAMINS,THER W-MINERALS TABLET PO SCH (09:48)
[2019-09-15] MEDS ORDERED: LIDOCAINE HCL 1% 20ML VIAL (Pyxis) INJ ONE (10:46)
[2019-09-15] MEDS ORDERED: SODIUM BICARBONATE 4% (2.4MEQ) 5ML VIAL IV ONE (10:47)
[2019-09-15] MEDS: ACETAMINOPHEN 325MG TABLET PO PRN ×2 (11:44→17:56)
[2019-09-15 12:00] VITALS: BP 110/86
[2019-09-15] MEDS: VANCOMYCIN 750 MG PREMIX 150 ML IV SCH (12:37)
[2019-09-15 14:32] VITALS: BP 110/86
[2019-09-15 16:00] VITALS: BP 126/75
== END 2019-09-15 19:23 | DRG 871 ==
LOC: ER 11:01 → MICUSO 15:21 → EDBEDREQTM 15:32 → EDBEDREQ 15:32 → 7WST 18:01
PROVIDERS: ADMIT Hospitalist; ATTEND Hospitalist
PROC: 0HJT3ZZ Inspection of Right Breast, Percutaneous Approach (ICD-10-PCS; principal; 2019-09-15)
DX: A41.89 Other specified sepsis (principal); U07.1 COVID-19; E43 Unspecified severe protein-calorie malnutrition; G93.40 Encephalopathy, unspecified; I69.354 Hemiplegia and hemiparesis following cerebral infarction affecting left non-dominant side; N39.0 Urinary tract infection, site not specified; L03.113 Cellulitis of right upper limb; E78.5 Hyperlipidemia, unspecified; F03.90 Unspecified dementia, unspecified severity, without behavioral disturbance, psychotic disturbance, mood disturbance, and anxiety; I10 Essential (primary) hypertension; N61.0 Mastitis without abscess; N63.10 Unspecified lump in the right breast, unspecified quadrant; N61.1 Abscess of the breast and nipple; E78.00 Pure hypercholesterolemia, unspecified; J98.8 Other specified respiratory disorders; Z79.899 Other long term (current) drug therapy; Z68.26 Body mass index [BMI] 26.0-26.9, adult
CPT/HCPCS: 36415; 71045; 76641; 80048; 80053; 80202; 81003; 83605; 84145; 84484; 85025; 93005; 96365; 99285; J1650; J2270; J2405; J2543; J3370; J3490; J7060; U0003-CS

== ENCOUNTER → 2019-12-27 | Outpatient (CLI) | payer MEDICARE, MEDICAID ==
[~2019-12-27] MED LIST changes: +AMLO10TA80 MT; -AMLO5TAB4 PO; +ASPI-1158 MT; +ATOR20TA65 MT; +CLOP75TA4 MT; +CRAN450T10 MT; +MIRT15TA MT; -MYL30 PO
== END | disposition home or self-care (01) ==
LOC: LAB 11:25
PROVIDERS: ATTEND Hospitalist
DX: Z20.828 Contact with and (suspected) exposure to other viral communicable diseases (principal)
CPT/HCPCS: C9803; U0003

== ENCOUNTER → 2019-12-29 | Outpatient (CLI) | payer MEDICARE, MEDICAID ==
[~2019-12-29] MED LIST changes: +IOHEXOL-300 100 ML BOTTLE ONE; +LIDOCAINE HCL 1% 20ML VIAL (Pyxis) INJ ONE; +SODIUM BICARBONATE 4% (2.4MEQ) 5ML VIAL IV ONE
== END | disposition home or self-care (01) ==
LOC: NM 08:08
PROVIDERS: ATTEND Specialist
DX: N63.10 Unspecified lump in the right breast, unspecified quadrant (principal); C50.911 Malignant neoplasm of unspecified site of right female breast; R92.8 Other abnormal and inconclusive findings on diagnostic imaging of breast; G31.9 Degenerative disease of nervous system, unspecified; R59.0 Localized enlarged lymph nodes; E04.1 Nontoxic single thyroid nodule; N13.30 Unspecified hydronephrosis; Z79.82 Long term (current) use of aspirin; Z79.899 Other long term (current) drug therapy; Z98.890 Other specified postprocedural states
CPT/HCPCS: 19083; 70551; 71260; 74177; 78306; 88305; A9503; J3490; Q9967